=== PATIENT | male | born 1970 | race Asian ===

== ENCOUNTER 2019-11-08 18:39 | Emergency (ER) | payer OTHER, MEDICAID ==
[~2019-11-08] VITALS: Ht 170.2 cm; Wt 95.3 kg
[2019-11-08 18:49] VITALS: BP_SYST 166
[2019-11-08] MEDS: IBUPROFEN 800 MG TABLET PO ONE (19:58)
[2019-11-08] MEDS ORDERED: BACITRACIN 1 GM OINT TP ONE (21:28)
[2019-11-08 22:19] VITALS: BP_SYST 133
== END 2019-11-08 22:19 | disposition home or self-care (01) ==
LOC: SED 18:39
DX: S93.402A Sprain of unspecified ligament of left ankle, initial encounter (principal); S46.211A Strain of muscle, fascia and tendon of other parts of biceps, right arm, initial encounter; S39.011A Strain of muscle, fascia and tendon of abdomen, initial encounter; S80.212A Abrasion, left knee, initial encounter; S90.812A Abrasion, left foot, initial encounter; S90.811A Abrasion, right foot, initial encounter; Z91.013 Allergy to seafood; V28.4XXA Motorcycle driver injured in noncollision transport accident in traffic accident, initial encounter; Y93.89 Activity, other specified; Y92.89 Other specified places as the place of occurrence of the external cause; Y99.8 Other external cause status
CPT/HCPCS: 72170-TC; 73060-TC; 73502; 73552; 73564; 99284